=== PATIENT | female | born 1960 | race Caucasian/White ===

== ENCOUNTER 2018-10-12 06:53 | Day surgery (SDC) | payer OTHER ==
[2018-10-12] MEDS ORDERED: Lactated Ringers 1,000 ML IV SCH (07:30)
--- NOTE | 2018-10-12 07:37 | HP ---
DATE OF SURGERY: 10/12/2018 ANTICIPATED PROCEDURE: Colonoscopy. HISTORY OF PRESENT ILLNESS: The patient had rectal bleeding, diarrhea, abdominal pain. She is requiring colonoscopy with stool sample. PAST MEDICAL HISTORY: ALLERGIES: PENICILLIN, SULFA. MEDICATIONS: Glipizide, Januvia, Metoprolol. PAST SURGICAL HISTORY: Total knee. SOCIAL HISTORY: Negative. FAMILY HISTORY: Negative. REVIEW OF SYSTEMS: Diabetes. PHYSICAL EXAMINATION: VITAL SIGNS: Normal. CHEST: Clear. COR: Regular. ABDOMEN: Satisfactory. IMPRESSION: Rectal bleeding, diarrhea. PLAN: Colonoscopy with stool sample.
[2018-10-12] MEDS ORDERED: DIPRIVAN 200 MG/20 ML IV ONE ×2 (09:13→09:29)
[2018-10-12] MEDS ORDERED: GlucaGen 1 MG ONE (09:30)
[2018-10-12 11:04] VITALS: O2SAT 97
[2018-10-12 11:06] VITALS: BP 145/88; PULSE 57
--- NOTE | 2018-10-12 13:21 | OP ---
SURGERY DATE/TIME: 10/12/2018 0914 PREOPERATIVE DIAGNOSIS: Rectal bleeding, diarrhea, abdominal pain. POSTOPERATIVE DIAGNOSIS: One polyp cecal. She has a very redundant colon, fairly large diameter colon but nothing specific. Bowel prep was excellent. There was no stool for specimen. PROCEDURES: 1) Colonoscopy complete to cecum. 2) Hot polypectomy x1 cecal polyp. SURGEON: Max Tatum M.D. BONDING MOLDER: Samson Mcmillan M.D. ANESTHESIA: MAC. COMPLICATIONS: None. CONDITION: Stable. INDICATION: A patient requiring evaluation. DESCRIPTION OF PROCEDURE: Taken to endoscopy. MAC sedation provided. Anal digital examination satisfactory. Scope introduced. Scope advanced to the cecum. Colon was slightly redundant, fairly wide. It did require half dose of Glucagon. On circumferential withdrawal just above the ileocecal valve was a 1 cm polyp taken with hot biopsy forceps to extinction. Ascending, hepatic, transverse, splenic, descending, sigmoid, rectum. Fairly redundant colon. As she has had some symptomatology, I believe it is probably an irritable bowel syndrome symptomatology. There is nothing specific. Rectum, anus satisfactory. The patient tolerated the procedure satisfactorily. Follow up in three years.
== END 2018-10-12 10:55 | disposition home or self-care (01) ==
LOC: SDC 06:53
PROVIDERS: ATTEND Surgery
DX: K62.5 Hemorrhage of anus and rectum (principal); R19.7 Diarrhea, unspecified; R10.9 Unspecified abdominal pain; D12.0 Benign neoplasm of cecum; E11.9 Type 2 diabetes mellitus without complications; Z79.899 Other long term (current) drug therapy
CPT/HCPCS: 82962; J1610; J2704

== ENCOUNTER 2020-11-14 18:22 | Emergency (ER) | payer OTHER ==
--- NOTE | 2020-11-14 18:26 | ERPHSYRPT ---
- History of Present Illness Time Seen by Provider: 11/14/20 18:26 Historian: patient, family Exam Limitations: no limitations Physician History: This is a morbidly obese 60-year-old white female with a history of hypertension, diabetes, irritable bowel syndrome, history of diverticulitis in the past and who has had a total hysterectomy and bladder suspension surgery who presents with sudden onset of periumbilical abdominal pain after bending over and standing up. The pain was severe. It is described as sharp and radiated in the right lower quadrant where it remained throughout the day. She has felt nauseated throughout the day but has had no vomiting. She has no chest pain. She has no shortness of breath. She has no vomiting or diarrhea. Patient was concerned that she may have appendicitis and came into the emergency department for evaluation and management. Timing/Duration: today Activities at Onset: none Quality: sharpness, stabbing Abdominal Pain Onset Location: RLQ, periumbilical Severity of Pain-Max: moderate Severity of Pain-Current: mild (Mild to moderate) Modifying Factors: Improves With: nothing Associated Symptoms: nausea Previous symptoms: no prior history Allergies/Adverse Reactions: Penicillins Allergy (Mild, Verified 10/04/18 11:10) Sulfa (Sulfonamide Antibiotics) [Sulfa(Sulfonamide Antibiotics)] Allergy (Mild, Verified 10/04/18 11:10) Home Medications: Glipizide 5 mg [Glucotrol 5 MG] 5 mg PO DAILY 03/21/15 [History] Escitalopram Oxalate 10 mg [Lexapro 10 MG] 10 mg PO DAILY 10/04/18 [History] Eszopiclone [Lunesta] 2 mg PO HS 10/04/18 [History] Insulin Degludec [Tresiba Flextouch U-100] 100 unit SQ UD 10/04/18 [History] Insulin Glulisine [Apidra] 100 unit SQ UD 10/04/18 [History] Multivitamin [Multivitamins] 1 each PO DAILY 10/04/18 [History] Pregabalin [Lyrica 75 mg Cap] 75 mg PO TID 10/04/18 [History] Cyclobenzaprine HCl 10 mg [Cyclobenzaprine 10 MG] 10 mg PO DAILY 11/14/20 [History] Hx Tetanus, Diphtheria Vaccination/Date Given: No Hx Influenza Vaccination/Date Given: No Hx Pneumococcal Vaccination/Date Given: No Travel Risk - International Travel Have you traveled outside of the country in past 3 weeks: No - Coronavirus Screening Are you exhibiting any of the following symptoms?: No Close contact with a COVID-19 positive Pt in past 14-21 Days: No - Review of Systems Constitutional: No Symptoms Eyes: No Symptoms Ears, Nose, & Throat: No Symptoms Respiratory: No Symptoms Cardiac: No Symptoms Abdominal/Gastrointestinal: Abdominal Pain, Nausea Genitourinary Symptoms: No Symptoms Musculoskeletal: No Symptoms Skin: No Symptoms Neurological: No Symptoms Psychological: No Symptoms Endocrine: No Symptoms Hematologic/Lymphatic: No Symptoms Immunological/Allergic: No Symptoms All Other Systems: Reviewed and Negative - Past Medical History Pertinent Past Medical History: Yes Neurological History: No Pertinent History ENT History: No Pertinent History Cardiac History: Hypertension, Other Respiratory History: No Pertinent History Endocrine Medical History: Diabetes Type II Musculoskeletal History: Arthritis GI Medical History: Irritable Bowel History: No Pertinent History Psycho-Social History: Depression Female Reproductive Disorders: No Pertinent History Other Medical History: kidney stones - Past Surgical History Past Surgical History: Yes Neuro Surgical History: No Pertinent History Cardiac: Cardiac Catheterization Respiratory: No Pertinent History Gastrointestinal: Cholecystectomy Genitourinary: No Pertinent History Musculoskeletal: Joint Replacement, Orthopedic Surgery Female Surgical History: Hysterectomy Other Surgical History: christina knee replacement, - Social History Smoking Status: Never smoker Exposure to second hand smoke: No Drug Use: none Patient Lives Alone: No - Nursing Vital Signs Nursing Vital Signs: Initial Vital Signs Temperature 97.6 F 11/14/20 18:27 Pulse Rate 72 11/14/20 18:27 Respiratory Rate 22 11/14/20 18:27 Blood Pressure 145/98 11/14/20 18:27 O2 Sat by Pulse Oximetry 99 11/14/20 18:27 Pain Scale Pain Intensity 5 - Physical Exam General Appearance: no apparent distress, alert, anxiety, obese Eye Exam: PERRL/EOMI, eyes nml inspection Ears, Nose, Throat Exam: normal ENT inspection, moist mucous membranes Neck Exam: normal inspection, non-tender, supple, full range of motion Respiratory Exam: normal breath sounds, lungs clear, airway intact, No chest tenderness, No respiratory distress Cardiovascular Exam: regular rate/rhythm, normal heart sounds, normal peripheral pulses Gastrointestinal/Abdomen Exam: soft, normal bowel sounds, tenderness, guarding (Right lower quadrant with palpation), No rebound Pelvic Exam: not done Rectal Exam: not done Back Exam: normal inspection, normal range of motion, No CVA tenderness, No vertebral tenderness Extremity Exam: normal inspection, normal range of motion, pelvis stable Neurologic Exam: alert, oriented x 3, cooperative, machine tool builder II-XII nml as tested, normal mood/affect, nml cerebellar function, nml station & gait, sensation nml Skin Exam: normal color, warm, dry Lymphatic Exam: No adenopathy SpO2 Interpretation: normal O2 Delivery: Room Air - Course Nursing assessment & vital signs reviewed: Yes Ordered Tests: Active Orders 24 hr Category Date Time Status IV Insertion STAT Care 11/14/20 19:07 Active ABDOMEN AND PELVIS W/0 CONTRAS [CT] Stat Exams 11/14/20 19:07 Taken AMYLASE Stat Lab 11/14/20 19:10 Completed CBC W DIFF Stat Lab 11/14/20 19:10 Completed CMP Stat Lab 11/14/20 19:10 Completed LIPASE Stat Lab 11/14/20 19:10 Completed Lactic Acid Stat Lab 11/14/20 19:10 Completed UA W/RFX UR CULTURE Stat Lab 11/14/20 19:10 Completed Medication Summary Discontinued Medications Generic Name Dose Route Start Last Admin Trade Name Freq PRN Reason Stop Dose Admin Hydromorphone HCl 1 mg 11/14/20 20:59 Hydromorphone 1 Mg/Ml Injection IV 11/14/20 21:00 STAT ONE Sodium Chloride 1,000 mls @ 999 mls/hr 11/14/20 19:07 11/14/20 19:19 Sodium Chloride 0.9% 1000 Ml IV 11/14/20 20:07 999 mls/hr .Q1H1M STA Administration Sodium Chloride Confirm 11/14/20 19:18 Sodium Chloride 0.9% 1000 Ml Administered 11/14/20 19:19 Dose 1,000 mls @ ud .ROUTE .STK-MED ONE Ondansetron HCl 4 mg 11/14/20 19:07 11/14/20 19:20 Zofran 4 Mg/2 Ml Vial IV 11/14/20 19:08 4 mg STAT ONE Administration Ondansetron HCl Confirm 11/14/20 19:17 Zofran 4 Mg/2 Ml Vial Administered 11/14/20 19:18 Dose 4 mg .ROUTE .STK-MED ONE Lab/Rad Data: Laboratory Result Diagrams 11/14/20 19:10 11/14/20 19:10 Laboratory Results 11/14/20 11/14/20 11/14/20 Range/Units 19:10 19:10 19:10 WBC 12.4 H (4.0-10.5) K/mm3 RBC 4.65 (4.1-5.4) M/mm3 Hgb 12.9 (12.0-16.0) gm/dl Hct 41.2 (35-47) % MCV 88.6 (78-100) fl MCH 27.7 (26-32) pg MCHC 31.3 L (32-36) g/dl RDW 14.9 H (11.5-14.0) % Plt Count 322 (150-450) K/mm3 MPV 11.2 H (7.5-11.0) fl Gran % 67.6 H (36.0-66.0) % Eos # (Auto) 0.43 (0-0.5) Absolute Lymphs (auto) 2.34 (1.0-4.6) Absolute Monos (auto) 1.20 (0.0-1.3) Lymphocytes % 18.9 L (24.0-44.0) % Monocytes % 9.7 (0.0-12.0) % Eosinophils % 3.5 (0.00-5.0) % Basophils % 0.3 (0.0-0.4) % Absolute Granulocytes 8.35 H (1.4-6.9) Basophils # 0.04 (0-0.4) Sodium 142 (137-145) mmol/L Potassium 4.1 (3.5-5.1) mmol/L Chloride 105 (98-107) mmol/L Carbon Dioxide 25 (22-30) mmol/L Anion Gap 16.5 H (5-15) MEQ/L BUN 25 H (7-17) mg/dL Creatinine 1.04 (0.52-1.04) mg/dL Estimated GFR 57.1 ML/MIN Glucose 116 H (74-106) mg/dL Lactic Acid 1.0 (0.4-2.0) Calcium 9.3 (8.4-10.2) mg/dL Total Bilirubin 0.20 (0.2-1.3) mg/dL AST 28 (14-36) U/L ALT 27 (0-35) U/L Alkaline Phosphatase 98 (38-126) U/L Serum Total Protein 7.2 (6.3-8.2) g/dL Albumin 4.2 (3.5-5.0) g/dL Amylase 65 (30-110) U/L Lipase 121 (23-300) U/L Urine Color (YELLOW) Urine Appearance (CLEAR) Urine pH (5-6) Ur Specific [place] (1.005-1.025) Urine Protein (Negative) Urine Ketones (NEGATIVE) Urine Blood (0-5) Frederic/ul Urine Nitrite (NEGATIVE) Urine Bilirubin (NEGATIVE) Urine Urobilinogen (0-1) mg/dL Ur Leukocyte Esterase (NEGATIVE) Urine WBC (Auto) (0-5) /HPF Urine RBC (Auto) (0-2) /HPF U Epithel Cells (Auto) (FEW) /HPF Urine Bacteria (Auto) (NEGATIVE) /HPF Urine Mucus (Auto) (NEGATIVE) /HPF Urine Culture Reflexed (NO) Urine Glucose (NEGATIVE) mg/dL 11/14/20 Range/Units 19:10 WBC (4.0-10.5) K/mm3 RBC (4.1-5.4) M/mm3 Hgb (12.0-16.0) gm/dl Hct (35-47) % MCV (78-100) fl MCH (26-32) pg MCHC (32-36) g/dl RDW (11.5-14.0) % Plt Count (150-450) K/mm3 MPV (7.5-11.0) fl Gran % (36.0-66.0) % Eos # (Auto) (0-0.5) Absolute Lymphs (auto) (1.0-4.6) Absolute Monos (auto) (0.0-1.3) Lymphocytes % (24.0-44.0) % Monocytes % (0.0-12.0) % Eosinophils % (0.00-5.0) % Basophils % (0.0-0.4) % Absolute Granulocytes (1.4-6.9) Basophils # (0-0.4) Sodium (137-145) mmol/L Potassium (3.5-5.1) mmol/L Chloride (98-107) mmol/L Carbon Dioxide (22-30) mmol/L Anion Gap (5-15) MEQ/L BUN (7-17) mg/dL Creatinine (0.52-1.04) mg/dL Estimated GFR ML/MIN Glucose (74-106) mg/dL Lactic Acid (0.4-2.0) Calcium (8.4-10.2) mg/dL Total Bilirubin (0.2-1.3) mg/dL AST (14-36) U/L ALT (0-35) U/L Alkaline Phosphatase (38-126) U/L Serum Total Protein (6.3-8.2) g/dL Albumin (3.5-5.0) g/dL Amylase (30-110) U/L Lipase (23-300) U/L Urine Color YELLOW (YELLOW) Urine Appearance CLEAR (CLEAR) Urine pH 5.0 (5-6) Ur Specific [place] 1.033 (1.005-1.025) Urine Protein NEGATIVE (Negative) Urine Ketones NEGATIVE (NEGATIVE) Urine Blood NEGATIVE (0-5) Frederic/ul Urine Nitrite NEGATIVE (NEGATIVE) Urine Bilirubin NEGATIVE (NEGATIVE) Urine Urobilinogen NEGATIVE (0-1) mg/dL Ur Leukocyte Esterase NEGATIVE (NEGATIVE) Urine WBC (Auto) 0-2 (0-5) /HPF Urine RBC (Auto) 0-2 (0-2) /HPF U Epithel Cells (Auto) RARE (FEW) /HPF Urine Bacteria (Auto) NONE (NEGATIVE) /HPF Urine Mucus (Auto) SLIGHT (NEGATIVE) /HPF Urine Culture Reflexed NO (NO) Urine Glucose >=500 (NEGATIVE) mg/dL - Progress Progress: improved, pain not gone completely, re-examined Progress Note: 11/14/20 21:17 CAT scan of the abdomen pelvis without contrast shows no evidence of any acute intra-abdominal or pelvic pathology. There is no evidence of appendicitis. No abdominal aortic aneurysm present. There is evidence of bilateral spondylolysis, spondylolisthesis, and degenerative spondylosis. Counseled pt/family regarding: lab results, diagnosis, need for follow-up, rad results - Departure Departure Disposition: Home Clinical Impression: Abdominal pain Condition: Stable Critical Care Time: No Referrals: DELORES TRONCOSO [Primary Care Provider] - Additional Instructions: Plenty of fluids. Take medication as prescribed. Follow-up with your primary care physician on 11/17/2020 for further evaluation and management. Prescriptions: Hydrocodone/APAP 5/325 [[place] 5/325 mg] 1 each PO Q8H PRN PRN #6 tablet MDD 3 PRN Reason: Pain
[2020-11-14 18:36] VITALS: BP 145/98; PULSE 72; O2SAT 99
[2020-11-14] MEDS ORDERED: Zofran 4 MG/2 ML VIAL IV ONE (19:07)
[2020-11-14] MEDS ORDERED: Sodium Chloride 0.9% 1000 ML 1,000 ML IV STA (19:07)
[2020-11-14 19:14] LABS: Absolute Neutrophil Ct (ANC) 8.35 (1.4-6.9); BASOPHIL % 0.3 % (0.0-0.4); Basophil (Absolute #) 0.04 (0-0.4); Eosinophil % 3.5 % (0.00-5.0); Eosinophil (Absolute #) 0.43 (0-0.5); Hematocrit 41.2 % (35-47); Hemoglobin 12.9 gm/dl (12.0-16.0); Lymphocyte (Absolute #) 2.34 (1.0-4.6); Lymphocytes % 18.9 % (24.0-44.0); Mean Cell Volume 88.6 fl (78-100); Mean Corpuscular Hemoglobin 27.7 pg (26-32); Mean Corpuscular Hgb Concent. 31.3 g/dl (32-36); Mean Platelet Volume 11.2 fl (7.5-11.0); Monocytes % 9.7 % (0.0-12.0); Neutrophil % 67.6 % (36.0-66.0); Platelet Count 322 K/mm3 (150-450); Red Blood Count 4.65 M/mm3 (4.1-5.4); Red Cell Distribution Width 14.9 % (11.5-14.0); White Blood Count 12.4 K/mm3 (4.0-10.5)
[2020-11-14] MEDS ORDERED: Zofran 4 MG/2 ML VIAL ONE (19:17)
[2020-11-14] MEDS ORDERED: Sodium Chloride 0.9% 1000 ML 1,000 ML ONE (19:18)
[2020-11-14 19:20] LABS: Appearance CLEAR (CLEAR); Bilirubin NEGATIVE (NEGATIVE); Blood NEGATIVE Ery/ul (0-5); Epithelial Cells RARE /HPF (FEW); Glucose >=500 mg/dL (NEGATIVE); Ketones NEGATIVE (NEGATIVE); Leukocyte Esterase NEGATIVE (NEGATIVE); Mucus SLIGHT /HPF (NEGATIVE); Nitrite NEGATIVE (NEGATIVE); Protein,Urine Dip NEGATIVE (Negative); RBC 0-2 /HPF (0-2); Specific Gravity 1.033 (1.005-1.025); Urobilinogen NEGATIVE mg/dL (0-1); WBC 0-2 /HPF (0-5)
[2020-11-14 19:22] LABS: ALBUMIN 4.2 g/dL (3.5-5.0); ANION GAP 16.5 MEQ/L (5-15); BILIRUBIN,TOTAL 0.2 mg/dL (0.2-1.3); Calcium 9.3 mg/dL (8.4-10.2); Creatinine 1 1.04 mg/dL (0.52-1.04); EST GLOMERULAR FILTRATION RATE 57.1 ML/MIN; Potassium 4.1 mmol/L (3.5-5.1); Total Protein 7.2 g/dL (6.3-8.2)
[2020-11-14] MEDS ORDERED: Hydromorphone 1 mg/ml Injection IV ONE (20:59)
[2020-11-14] MEDS ORDERED: Hydromorphone 1 mg/ml Injection ONE (21:12)
--- NOTE | 2020-11-14 21:51 | XRAY ---
Indication: Right lower quadrant pain and nausea. Multiple contiguous axial images obtained through abdomen and pelvis without contrast. Comparison: February 15, 2014. Lung bases demonstrates minimal bibasilar subsegmental atelectasis/scarring. No infiltrate or effusion. Heart not enlarged. Stomach is mildly distended with food/fluid. Noncontrasted stomach and bowel loops appear nonobstructed. Normal appendix. There is now mild diffuse fecal debris throughout. Again hysterectomy and cholecystectomy. No free fluid/air. Remaining liver, pancreas, spleen, adrenal glands, kidneys, ureters, and bladder are unremarkable for noncontrast exam. Minimal aortoiliac calcifications without AAA. Osseous structures intact again with moderate L4-S1 degenerative spondylosis and L4 spondylolysis with grade 2 spondylolisthesis. Impression: 1. New mild diffuse fecal stasis. 2. Stable lumbar degenerative spondylosis and L4 spondylolysis with grade [address] abdomen/pelvis without contrast exam is negative. Comment: Preliminary interpretation was made by [facility]. No critical discrepancy.
== END 2020-11-14 21:41 | disposition home or self-care (01) ==
LOC: ED 18:22
DX: R10.9 Unspecified abdominal pain (principal); E11.9 Type 2 diabetes mellitus without complications; I10 Essential (primary) hypertension; Z79.899 Other long term (current) drug therapy; K58.9 Irritable bowel syndrome, unspecified
CPT/HCPCS: 36000; 36415; 74176; 80053; 81001; 82150; 83605; 83690; 85025; 96374; 96375; 99284; J1170; J2405

== ENCOUNTER 2022-01-16 08:13 | Emergency (ER) | payer OTHER ==
--- NOTE | 2022-01-16 08:25 | ERPHSYRPT ---
- History of Present Illness Time Seen by Provider: 01/16/22 08:24 Source: patient Exam Limitations: no limitations Physician History: This is a 61-year-old white female who presents with hematuria and dysuria that began last night. She also has associated mild suprapubic cramping with urination as well as mild bilateral flank pain. Patient is not on any anticoagulation therapy. She does take aspirin daily. Patient has a history of insulin-dependent diabetes, arthritis and irritable bowel syndrome. Patient states that she does get yeast infections rather easily when taking antibiotics and therefore will need to be placed on an antifungal medication. Timing/Duration: yesterday Quality: aching, burning Onset Location: suprapubic, generalized flank Pain Radiation: generalized flank Severity of Pain-Max: mild Severity of Pain-Current: mild Sexual intercourse history: non-contributory Modifying Factors: Improves With: urinating Associated Symptoms: abdominal pain (Mild suprapubic), urinary frequency, No fever Allergies/Adverse Reactions: Penicillins Allergy (Mild, Verified 01/16/22 08:23) Sulfa (Sulfonamide Antibiotics) [Sulfa(Sulfonamide Antibiotics)] Allergy (Mild, Verified 01/16/22 08:23) Home Medications: Glipizide 5 mg [Glucotrol 5 MG] 5 mg PO DAILY 03/21/15 [History] Escitalopram Oxalate [Lexapro] 10 mg PO DAILY 10/04/18 [History] Eszopiclone [Lunesta] 2 mg PO HS 10/04/18 [History] Insulin Degludec [Tresiba Flextouch U-100] 100 unit SQ UD 10/04/18 [History] Insulin Glulisine [Apidra] 100 unit SQ UD 10/04/18 [History] Multivitamin [Multivitamins] 1 each PO DAILY 10/04/18 [History] Pregabalin [Lyrica 75 mg Cap] 75 mg PO TID 10/04/18 [History] Cyclobenzaprine HCl 10 mg [Cyclobenzaprine 10 MG] 10 mg PO DAILY 11/14/20 [History] Hx Tetanus, Diphtheria Vaccination/Date Given: No Hx Influenza Vaccination/Date Given: No Hx Pneumococcal Vaccination/Date Given: No Travel Risk - International Travel Have you traveled outside of the country in past 3 weeks: No - Coronavirus Screening Are you exhibiting any of the following symptoms?: No Close contact with a COVID-19 positive Pt in past 14-21 Days: No - Vaccine Status Have you recieved a Covid-19 vaccination: Yes Load Checker: Pfizer - Vaccination Dates Date of 2cond Vaccination (if applicable): 09/2020 - Review of Systems Constitutional: No Symptoms Eyes: No Symptoms Ears, Nose, & Throat: No Symptoms Respiratory: No Symptoms Cardiac: No Symptoms Abdominal/Gastrointestinal: Abdominal Pain (Mild suprapubic) Genitourinary Symptoms: Dysuria, Frequency, Hematuria Musculoskeletal: No Symptoms Skin: No Symptoms Neurological: No Symptoms Psychological: No Symptoms Endocrine: No Symptoms Hematologic/Lymphatic: No Symptoms Immunological/Allergic: No Symptoms All Other Systems: Reviewed and Negative - Past Medical History Pertinent Past Medical History: Yes Neurological History: No Pertinent History ENT History: No Pertinent History Cardiac History: Hypertension, Other Respiratory History: No Pertinent History Endocrine Medical History: Diabetes Type II Musculoskeletal History: Arthritis GI Medical History: Irritable Bowel History: No Pertinent History Psycho-Social History: Depression Female Reproductive Disorders: No Pertinent History Other Medical History: kidney stones - Past Surgical History Past Surgical History: Yes Neuro Surgical History: No Pertinent History Cardiac: Cardiac Catheterization Respiratory: No Pertinent History Gastrointestinal: Cholecystectomy Genitourinary: No Pertinent History Musculoskeletal: Joint Replacement, Orthopedic Surgery Female Surgical History: Hysterectomy Other Surgical History: christina knee replacement, - Social History Smoking Status: Never smoker Exposure to second hand smoke: No Drug Use: none Patient Lives Alone: No - Nursing Vital Signs Nursing Vital Signs: Initial Vital Signs Temperature 97.4 F 01/16/22 08:23 Pulse Rate 80 01/16/22 08:23 Respiratory Rate 17 01/16/22 08:23 Blood Pressure 114/80 01/16/22 08:23 O2 Sat by Pulse Oximetry 95 01/16/22 08:23 Pain Scale Pain Intensity 3 - Physical Exam General Appearance: no apparent distress, alert Eye Exam: PERRL/EOMI, eyes nml inspection Ears, Nose, Throat Exam: normal ENT inspection, moist mucous membranes Neck Exam: normal inspection, non-tender, supple, full range of motion Respiratory Exam: airway intact, No chest tenderness, No respiratory distress Gastrointestinal/Abdomen Exam: tenderness (Mild suprapubic to palpation), No distention, No guarding, No pulsatile mass, No rebound Pelvic Exam: not done Rectal Exam: not done Back Exam: normal inspection, normal range of motion, CVA tenderness, No vertebral tenderness Extremity Exam: normal inspection, normal range of motion, pelvis stable Neurologic Exam: alert, oriented x 3, cooperative, smoke jumper II-XII nml as tested, normal mood/affect, nml cerebellar function, nml station & gait, sensation nml Skin Exam: normal color, warm, dry Lymphatic Exam: No adenopathy SpO2 Interpretation: normal O2 Delivery: Room Air - Course Nursing assessment & vital signs reviewed: Yes Ordered Tests: Active Orders 24 hr Category Date Time Status UA W/RFX CULTURE Stat Lab 01/16/22 08:36 Results Lab/Rad Data: Laboratory Results 01/16/22 Range/Units 08:36 Urinalys Dipstick Clnc MAIN LAB Urine Color YELLOW (YELLOW) Urine Appearance CLOUDY (CLEAR) Urine pH 5.5 (5-6) Ur Specific [place] 1.020 (1.005-1.025) POC Urine Protein Conf 100 (Negative) Urine Ketones NEGATIVE (NEGATIVE) Urine Nitrite POSITIVE (NEGATIVE) Urine Bilirubin NEGATIVE (NEGATIVE) Urine Urobilinogen 0.2 (0-1) mg/dL Urine Leukocytes MODERATE (NEGATIVE) Urine WBC (Auto) >100 (0-5) /HPF Urine RBC (Auto) >101 (0-2) /HPF U Epithel Cells (Auto) RARE (FEW) /HPF Urine Bacteria (Auto) FEW (NEGATIVE) /HPF Urine RBC LARGE (0-5) Frederic/ul Unidentified Crystals 2-5 (NEGATIVE) /HPF Urine Yeast (Budding) Rare (NEGATIVE) /HPF Ur Culture Indicated? YES Urine Glucose 500 (NEGATIVE) mg/dL - Departure Departure Disposition: Home Clinical Impression: UTI (urinary tract infection), Dysuria, Hematuria Condition: Stable Critical Care Time: No Referrals: DELORES TRONCOSO [Primary Care Provider] - Follow up/PCP as directed Additional Instructions: Drink plenty of fluids. Take your antibiotics as prescribed. Take your second Diflucan on 01/19/2022. Follow-up with your primary care provider or urologist for persistent symptoms. Prescriptions: Ciprofloxacin [Cipro 500 MG] 500 mg PO BID #14 tablet Fluconazole 100 mg [Diflucan 100 MG] 100 mg PO DAILY #1 tablet Phenazopyridine HCl 200 mg [Pyridium 200 mg] 200 mg PO TID #6 tablet
[2022-01-16 08:48] LABS: Appearance CLOUDY (CLEAR); Bilirubin NEGATIVE (NEGATIVE); Glucose 500 mg/dL (NEGATIVE); Ketones NEGATIVE (NEGATIVE)
[2022-01-16 08:49] LABS: Dipstick done @ ? MAIN LAB; Nitrite POSITIVE (NEGATIVE); Ph 5.5 (5-6); Protein,Urine Dip 100 (Negative); RBC LARGE Ery/ul (0-5); Urobilinogen 0.2 mg/dL (0-1)
[2022-01-16 08:59] LABS: Epithelial Cells RARE /HPF (FEW); WBC >100 /HPF (0-5)
[2022-01-16 09:01] LABS: RBC >101 /HPF (0-2)
[2022-01-16] MEDS ORDERED: Diflucan 100 MG PO ONE (09:01)
[2022-01-16] MEDS ORDERED: Levofloxacin 500 MG Tablet PO ONE (09:01)
[2022-01-16 09:02] LABS: Bacteria FEW /HPF (NEGATIVE); Budding Yeast Rare /HPF (NEGATIVE); Urine Cultured Indicated? YES
[2022-01-16] MEDS ORDERED: PYRIDIUM 200 MG PO ONE (09:02)
[2022-01-16] MEDS ORDERED: PYRIDIUM 200 MG ONE (09:15)
[2022-01-16] MEDS ORDERED: Levofloxacin 500 MG Tablet ONE (09:15)
[2022-01-16 09:30] VITALS: BP 117/79; PULSE 76; O2SAT 99
== END 2022-01-16 09:40 | disposition home or self-care (01) ==
LOC: ED 08:13
DX: N39.0 Urinary tract infection, site not specified (principal); R31.9 Hematuria, unspecified; R30.9 Painful micturition, unspecified; R10.9 Unspecified abdominal pain; E11.9 Type 2 diabetes mellitus without complications; I10 Essential (primary) hypertension; Z79.4 Long term (current) use of insulin; Z79.84 Long term (current) use of oral hypoglycemic drugs; Z79.899 Other long term (current) drug therapy
CPT/HCPCS: 81015; 87077; 87086; 87186; 99283; A9270-GY

== ENCOUNTER 2024-11-14 06:33 | Emergency (ER) | payer MEDICARE, OTHER ==
[2024-11-14 06:58] VITALS: TEMP 97.8
--- NOTE | 2024-11-14 07:07 | ERPHSYRPT ---
- History of Present Illness Time Seen by Provider: 11/14/24 06:50 Historian: patient, family Exam Limitations: no limitations Patient Subjective Stated Complaint: PATIENT STATED, "YESTERDAY I STARTED HAVING BACK PAIN AND I THOUGHT I JUST HURT MY BACK. THIS MORNING I WOKE UP AND I WAS HAVING CHEST PAIN. THE PAIN STARTED IN MY RIGHT SHOULDER AND NOW IT IS JUST IN THE MIDDLE OF MY CHEST." Triage Nursing Assessment: PATIENT PRESENTS TO ER WITH COMPLAINTS OF CHEST PAIN. PATIENT ARRIVED BY PERSONAL VEHICLE. PATIENT AMBULATED WITHOUT DIFFICULTY. PATIENT IS A/O X3. PATIENT COMPLAINED OF CHEST PAIN THAT STARTED IN HER RIGHT SHOULDER AND IS NOW IN THE MIDDLE OF HER CHEST. PATIENT STATED HER PAIN IS A 7/10 ON THE PAIN SCALE AT THIS TIME. PATIENT STATED SHE HAS NITRO, BUT HAS NOT TAKEN ANY AT THIS TIME. PATIENT IS IN NORMAL SINUS RHYTHM. SKIN IS WARM, DRY, AND PINK. RESPIRATIONS ARE EASY AND NONLABORED. PATIENT STATED SHE HAS PAIN UPON INSPIRATION (PATIENT IS 2 MONTHS POST CABG. SURGICAL INCISION ON MID STERNUM APPEARS TO BE HEALING APPROPRIATELY). Physician History: This is a 64-year-old white female patient of Dr. Troncoso who presents by private vehicle accompanied by her spouse with the complaint of chest pain that is central substernal and radiates to the right shoulder and now radiating over to the left side. It is an achiness and a pressure by description. The pain worsens with deep inspiration. Patient denies fever and denies cough. Patient's symptoms began last evening and again this morning. Patient took all of her medications this morning per her report which does include a baby aspirin and Plavix. She did not take any nitroglycerin. In August 2024 patient underwent a CABG. Her audit partner is Dr. Rucker and her cardiothoracic surgeon is Dr. Yanez. The procedure was performed at [facility] in [facility]. Patient has a history of insulin-dependent diabetes, hyperlipidemia, coronary artery disease (CABG) gastroesophageal reflux disease and the patient is on Plavix. Timing/Duration: yesterday Activities at Onset: none Quality: pressure, sharpness Chest Pain Radiation: arm (Right shoulder), back Severity of Pain-Max: moderate Severity of Pain-Current: moderate Modifying Factors: Improves With: nothing Associated Symptoms: hurts to breathe Prior Chest Pain/Cardiac Workup: cardiac cath, echocardiography, heart attack Nitro Today/Relief: no nitro taken today Aspirin Treatment Today: 81 mg x 1, provided at home Allergies/Adverse Reactions: Penicillins Allergy (Mild, Verified 11/14/24 06:58) Sulfa (Sulfonamide Antibiotics) [Sulfa(Sulfonamide Antibiotics)] Allergy (Mild, Verified 11/14/24 06:58) Home Medications: Ascorbic Acid [Vitamin C] 1,000 mg PO DAILY 08/14/24 [History] Biotin [Biotin-D] 1 tab PO DAILY 08/14/24 [History] Gabapentin [Neurontin ] 300 mg PO TID 08/14/24 [History] Insulin Degludec [Tresiba Flextouch U-100] 1 unit SQ CLARIFY 08/14/24 [History] Insulin Glulisine [Apidra Solostar] 1 unit SQ CLARIFY 08/14/24 [History] Semaglutide [Rybelsus] 1 tab PO DAILY 08/14/24 [History] Aspirin 81 gm Chew [Baby Aspirin 81 mg Chew] 81 mg PO QAM 11/14/24 [History] Atorvastatin Calcium 40 mg PO HS 11/14/24 [History] Clopidogrel Bisulfate [Clopidogrel] 75 mg PO QAM 11/14/24 [History] Cyanocobalamin (Vitamin B-12) [Vitamin B-12] 1,000 mcg PO QAM 11/14/24 [History] Empagliflozin [Jardiance] 10 mg PO QAM 11/14/24 [History] Eszopiclone 3 mg PO HS 11/14/24 [History] Ezetimibe 10 mg [Zetia 10 MG] 10 mg PO QAM 11/14/24 [History] Famotidine [Pepcid] 20 mg PO BID 11/14/24 [History] Nitroglycerin 0.4 mg Tablet [Nitrostat 0.4 MG Tablet] 0.4 mg SL Q5MIN PRN MR X 3 PRN 11/14/24 [History] Hx Tetanus, Diphtheria Vaccination/Date Given: Yes Hx Influenza Vaccination/Date Given: No Hx Pneumococcal Vaccination/Date Given: No Immunizations Up to Date: No Travel Risk - International Travel Have you traveled outside of the country in past 3 weeks: No - Emerging Infectious Disease Are you exhibiting symptoms associated with any current EIDs: No - Review of Systems Constitutional: No Symptoms Eyes: No Symptoms Ears, Nose, & Throat: No Symptoms Respiratory: No Symptoms Cardiac: Chest Pain Abdominal/Gastrointestinal: No Symptoms Genitourinary Symptoms: No Symptoms Musculoskeletal: No Symptoms Skin: No Symptoms Neurological: No Symptoms Psychological: No Symptoms Endocrine: No Symptoms Hematologic/Lymphatic: No Symptoms Immunological/Allergic: No Symptoms All Other Systems: Reviewed and Negative - Past Medical History Pertinent Past Medical History: Yes Neurological History: No Pertinent History ENT History: No Pertinent History Cardiac History: Hypertension, Other Respiratory History: No Pertinent History Endocrine Medical History: Diabetes Type II Musculoskeletal History: Arthritis GI Medical History: Irritable Bowel History: No Pertinent History Psycho-Social History: No Pertinent History Female Reproductive Disorders: No Pertinent History Other Medical History: kidney stones - Past Surgical History Past Surgical History: Yes Neuro Surgical History: No Pertinent History Cardiac: CABG, Cardiac Catheterization Respiratory: No Pertinent History Gastrointestinal: Cholecystectomy Genitourinary: No Pertinent History Musculoskeletal: Joint Replacement, Orthopedic Surgery Female Surgical History: Hysterectomy Other Surgical History: christina knee replacement, - Social History Smoking Status: Never smoker Exposure to second hand smoke: No Drug Use: none - Social Determinants of Health Will the patient participate in the screening: Yes Do you worry about a steady place to live?: Yes Do you have any problems with any of the following?: No known problems In the past 12 months,have you had to go without utilities?: No Transportation Issues: No Has anyone in your support network made you feel unsafe?: No Have you or anyone in your house had to go w/o enough food: No - Nursing Vital Signs Nursing Vital Signs: Initial Vital Signs Temperature 97.8 F 11/14/24 06:34 Pulse Rate 85 11/14/24 06:34 Respiratory Rate 18 11/14/24 06:34 Blood Pressure 141/81 11/14/24 06:34 O2 Sat by Pulse Oximetry 99 11/14/24 06:34 Pain Scale Pain Intensity 0 - Physical Exam General Appearance: mild distress, alert, anxiety Eye Exam: PERRL/EOMI, eyes nml inspection Ears, Nose, Throat Exam: normal ENT inspection, moist mucous membranes Neck Exam: normal inspection, non-tender, supple, full range of motion Respiratory Exam: normal breath sounds, chest tenderness, lungs clear, airway intact, No respiratory distress Cardiovascular Exam: regular rate/rhythm, normal heart sounds, normal peripheral pulses Gastrointestinal/Abdomen Exam: soft, normal bowel sounds, No tenderness Pelvic Exam: not done Rectal Exam: not done Back Exam: normal inspection, normal range of motion, No CVA tenderness, No vertebral tenderness Extremity Exam: normal inspection, normal range of motion, pelvis stable Neurologic Exam: alert, oriented x 3, cooperative, [employer] department supervisor II-XII nml as tested, nml cerebellar function, nml station & gait, sensation nml Skin Exam: normal color, warm, dry Lymphatic Exam: No adenopathy SpO2 Interpretation: normal SpO2: 97 O2 Delivery: Room Air - Course Nursing assessment & vital signs reviewed: Yes EKG Interpreted by Me: RATE (78), Sinus Rhythm, NORMAL AXIS, NORMAL INTERVALS, NORMAL QRS, Other (No acute ischemia on today's twelve-lead EKG. QTc is 446) Ordered Tests: Active Orders 24 hr Category Date Time Status Management Aide STAT Care 11/14/24 07:08 Active EKG-ER Only STAT Care 11/14/24 07:07 Active EKG-ER Only STAT Care 11/14/24 09:03 Active IV Insertion STAT Care 11/14/24 07:07 Active Pulse Oximetry (ED) STAT Care 11/14/24 07:07 Active ANKLE (3 VIEWS) Stat Exams 11/14/24 08:14 Completed CHEST WITHOUT CONTRAST [CT] Stat Exams 11/14/24 07:09 Completed FOOT (MINIMUM 3 VIEWS) Stat Exams 11/14/24 08:14 Completed CBC W DIFF Stat Lab 11/14/24 06:45 Completed CMP Stat Lab 11/14/24 06:45 Completed MAGNESIUM Stat Lab 11/14/24 06:45 Completed NT PRO BNPII Stat Lab 11/14/24 06:45 Completed PROTIME WITH INR Stat Lab 11/14/24 06:45 Completed TROPONIN Q4H Lab 11/14/24 06:45 Completed TROPONIN Q4H Lab 11/14/24 08:59 Completed TROPONIN Q4H Lab 11/14/24 15:15 Ordered Medication Summary Discontinued Medications Generic Name Dose Route Start Last Admin Trade Name Freq PRN Reason Stop Dose Admin Morphine Sulfate 2 mg 11/14/24 07:32 11/14/24 07:45 Morphine Sulfate 2 Mg/Ml Inj IV 11/14/24 07:33 2 mg STAT ONE Administration Morphine Sulfate Confirm 11/14/24 07:41 Morphine Sulfate 2 Mg/Ml Inj Administered 11/14/24 07:42 Dose 2 mg .ROUTE .STK-MED ONE Ondansetron HCl 4 mg 11/14/24 07:32 11/14/24 07:45 Ondansetron Hcl 4 Mg/2 Ml Vial IV 11/14/24 07:33 4 mg STAT ONE Administration Ondansetron HCl Confirm 11/14/24 07:41 Ondansetron Hcl 4 Mg/2 Ml Vial Administered 11/14/24 07:42 Dose 4 mg .ROUTE .STK-MED ONE Lab/Rad Data: Laboratory Result Diagrams 11/14/24 06:45 11/14/24 06:45 Laboratory Results 11/14/24 11/14/24 11/14/24 Range/Units 08:59 06:45 06:45 WBC (3.98-10.04) x10^3/uL RBC (3.93-5.22) x10^6/uL Hgb (11.2-15.7) g/dL Hct (34.1-44.9) % MCV (79.4-94.8) fL MCH (25.6-32.2) pg MCHC (32.2-35.5) g/dL RDW (11.7-14.4) % Plt Count (182-369) x10^3/uL MPV (9.4-12.3) fL Gran % (34.0-71.1) % Immature Gran % (Auto) (0.001-0.429) % Nucleat RBC Rel Count (0.00-0.2) % Eos # (Auto) (0.04-0.36) x10^3/uL Immature Gran # (Auto) (0.001-0.031) x10^3u/L Absolute Lymphs (auto) (1.18-3.74) x10^3/uL Absolute Monos (auto) (0.24-0.86) x10^3/uL Absolute Nucleated RBC (0.00-0.012) x10^3u/L Lymphocytes % (19.3-51.7) % Monocytes % (4.7-12.5) % Eosinophils % (0.7-5.8) % Basophils % (0.1-1.2) % Absolute Granulocytes (1.56-6.13) x10^3/uL Basophils # (0.01-0.08) x10^3/uL PT 9.8 (9.4-12.5) SECONDS INR 0.89 (0.8-3.0) Sodium (135-145) mmol/L Potassium (3.5-5.1) mmol/L Chloride (98-107) mmol/L Carbon Dioxide (22-30) mmol/L Anion Gap (5-15) MEQ/L BUN (7-17) mg/dL Creatinine (0.52-1.04) mg/dL Estimated GFR ML/MIN Glucose (74-106) mg/dL Calcium (8.4-10.2) mg/dL Magnesium (1.6-2.3) mg/dL Total Bilirubin (0.2-1.3) mg/dL AST (14-36) U/L ALT (0-35) U/L Alkaline Phosphatase (38-126) U/L Troponin I < 0.012 < 0.012 (0.000-0.033) ng/mL NT-Pro-B Natriuret Pep (<300) pg/mL Serum Total Protein (6.3-8.2) g/dL Albumin (3.5-5.0) g/dL 11/14/24 11/14/24 Range/Units 06:45 06:45 WBC 14.6 H (3.98-10.04) x10^3/uL RBC 4.90 (3.93-5.22) x10^6/uL Hgb 13.4 (11.2-15.7) g/dL Hct 42.6 (34.1-44.9) % MCV 86.9 (79.4-94.8) fL MCH 27.3 (25.6-32.2) pg MCHC 31.5 L (32.2-35.5) g/dL RDW 14.1 (11.7-14.4) % Plt Count 319 (182-369) x10^3/uL MPV 10.7 (9.4-12.3) fL Gran % 73.5 H (34.0-71.1) % Immature Gran % (Auto) 0.4 (0.001-0.429) % Nucleat RBC Rel Count 0.0 (0.00-0.2) % Eos # (Auto) 0.56 H (0.04-0.36) x10^3/uL Immature Gran # (Auto) 0.06 H (0.001-0.031) x10^3u/L Absolute Lymphs (auto) 2.01 (1.18-3.74) x10^3/uL Absolute Monos (auto) 1.16 H (0.24-0.86) x10^3/uL Absolute Nucleated RBC 0.00 (0.00-0.012) x10^3u/L Lymphocytes % 13.8 L (19.3-51.7) % Monocytes % 8.0 (4.7-12.5) % Eosinophils % 3.8 (0.7-5.8) % Basophils % 0.5 (0.1-1.2) % Absolute Granulocytes 10.69 H (1.56-6.13) x10^3/uL Basophils # 0.08 (0.01-0.08) x10^3/uL PT (9.4-12.5) SECONDS INR (0.8-3.0) Sodium 141 (135-145) mmol/L Potassium 4.1 (3.5-5.1) mmol/L Chloride 106 (98-107) mmol/L Carbon Dioxide 27 (22-30) mmol/L Anion Gap 12.3 (5-15) MEQ/L BUN 14 (7-17) mg/dL Creatinine 0.85 (0.52-1.04) mg/dL Estimated GFR 75.5 ML/MIN Glucose 97 (74-106) mg/dL Calcium 9.8 (8.4-10.2) mg/dL Magnesium 2.0 (1.6-2.3) mg/dL Total Bilirubin 0.60 (0.2-1.3) mg/dL AST 30 (14-36) U/L ALT 28 (0-35) U/L Alkaline Phosphatase 99 (38-126) U/L Troponin I (0.000-0.033) ng/mL NT-Pro-B Natriuret Pep 309 (<300) pg/mL Serum Total Protein 7.3 (6.3-8.2) g/dL Albumin 4.2 (3.5-5.0) g/dL - Progress Progress: improved, re-examined Air Movement: good Progress Note: 11/14/24 07:40 My medical decision making and the assignment of at least moderate complexity was based on review of the patient's past medical history, review the patient's medication list, review the patient's drug allergy list, history present illness and physical findings on examination. The workup in this patient includes placement of a intravenous line, twelve-lead EKG, CBC, CMP, BNP, troponin level, magnesium level and CT scan of the chest without contrast. Differential diagnosis includes but is not limited to muscle skeletal pain, pneumonia, myocardial infarction, CHF, arrhythmia, electrolyte abnormalities 11/14/24 08:[address] scan of the chest without contrast was interpreted by the radiologist and I reviewed the impression. The impression states small hiatal hernia with distal esophageal circumferential wall thickening. Questionable reflux esophagitis. Otherwise normal chest CT scan of the chest without contrast 11/14/24 09:00 I interpreted the preliminary report of the following plain x-rays: Right foot x-ray shows no acute fracture or dislocation. Right ankle x-ray shows chronic changes without evidence of acute fracture or dislocation. Final reports of the following plain x-rays were interpreted by the radiologist: Right foot x-ray shows degenerative changes without new or acute abnormalities Right ankle x-ray shows degenerative changes without new or acute abnormalities 11/14/24 09:07 I spoke with , the patient's audit partner. I reviewed the patient presenting complaint. He knows this patient well. I also reviewed the results of the workup. He states that the patient is safe to go home if the repeat twelve-lead EKG is nonacute and the repeat troponin is normal. I interpreted the repeat twelve-lead EKG that was performed on 11/14/2024 at 0903. The heart rate is 82 bpm. Is normal sinus rhythm. There is normal axis deviation, normal QRS and normal intervals. The QTc is 438. There are no acute ischemic changes. 11/14/24 09:33 I interpreted the repeat troponin level. It is normal. The patient may be discharged home. Blood Culture(s) Obtained: No Antibiotics given: No Counseled pt/family regarding: lab results, diagnosis, need for follow-up, rad results Medical Desision Making - Independent Historian Additional History obtained from: Family - Diagnostic Testing Diagnostic test were ordered, analyzed, and reviewed by me: Yes Radiological Interpretation: Interpreted by me, Reviewed by me, Teleradiologist Report - Risk of complications Low Risk: Low risk of morbidity from additional dx testing or treatment - Departure Departure Disposition: Home Clinical Impression: Esophagitis, Non-cardiac chest pain Condition: Stable Critical Care Time: No Referrals: DELORES TRONCOSO [Primary Care Provider, EMERGENCY MEDICINE] - Follow up/PCP as directed Additional Instructions: Avoid fatty greasy spicy foods. Take your medications as prescribed. Call Dr. Tapia and your audit partner today, 11/14/2024, to make arrangements for follow- up appointment to be seen in the next 3 to 5 days.
[2024-11-14 07:14] LABS: BASOPHIL % 0.5 % (0.1-1.2); Basophil (Absolute #) 0.08 x10^3/uL (0.01-0.08); Eosinophil (Absolute #) 0.56 x10^3/uL (0.04-0.36); Hematocrit 42.6 % (34.1-44.9); Hemoglobin 13.4 g/dL (11.2-15.7); IMMATURE GRAN # 0.06 x10^3u/L (0.001-0.031); IMMATURE GRAN % 0.4 % (0.001-0.429); Lymphocyte (Absolute #) 2.01 x10^3/uL (1.18-3.74); Mean Corpuscular Hemoglobin 27.3 pg (25.6-32.2); Mean Corpuscular Hgb Concent. 31.5 g/dL (32.2-35.5); Monocyte (Absolute #) 1.16 x10^3/uL (0.24-0.86); NUCLEATED RBC # 0.00 x10^3u/L (0.00-0.012); NUCLEATED RBC % 0.0 % (0.00-0.2); Platelet Count 319 x10^3/uL (182-369); Red Blood Count 4.90 x10^6/uL (3.93-5.22); White Blood Count 14.6 x10^3/uL (3.98-10.04)
[2024-11-14 07:22] LABS: INR 0.89 (0.8-3.0); PROTIME 9.8 SECONDS (9.4-12.5)
[2024-11-14 07:31] LABS: Calcium 9.8 mg/dL (8.4-10.2); Carbon Dioxide 27.0 mmol/L (22-30); Creatinine 1 0.85 mg/dL (0.52-1.04); EST GLOMERULAR FILTRATION RATE 75.5 ML/MIN; Glucose 97.0 mg/dL (74-106); NT PRO BNPII 309.0 pg/mL (<300); Potassium 4.1 mmol/L (3.5-5.1); SGOT/AST 30.0 U/L (14-36); SGPT/ALT 28.0 U/L (0-35); Total Protein 7.3 g/dL (6.3-8.2)
[2024-11-14] MEDS ORDERED: MORPHINE SULFATE 2 MG INJ ONE (07:41)
[2024-11-14] MEDS ORDERED: Zofran 4 MG/2 ML VIAL ONE (07:41)
[2024-11-14] MEDS: Zofran 4 MG/2 ML VIAL IV ONE (07:45)
[2024-11-14] MEDS: MORPHINE SULFATE 2 MG INJ IV ONE (07:45)
--- NOTE | 2024-11-14 08:53 | XRAY ---
Indication: Chest pain. Multiple contiguous axial images obtained through the chest without contrast. Comparison: February 16, 2014 Lungs demonstrates minimal bilateral dependent atelectasis. No suspicious pulmonary mass/nodule, infiltrate, or effusion. Heart not enlarged with interval CABG surgery. Aorta is normal in course and caliber. No pathologic mediastinal lymphadenopathy. Again small hiatal hernia with mild distal esophageal circumferential wall thickening, possible reflux esophagitis. Bony thorax intact with osteopenia and minimal/mild degenerative changes throughout spine. Limited upper abdomen again demonstrates cholecystectomy. Impression: 1. Again small hiatal hernia with distal esophageal circumferential wall thickening. Rule out reflux esophagitis. 2. Incidental CABG surgery, osteopenia, and multilevel degenerative spondylosis. 3. Remaining CT chest without contrast exam is negative.
--- NOTE | 2024-11-14 08:55 | XRAY ---
Indication: Pain. Comparison: May 14, 2024 3 view right ankle unchanged again demonstrating osteopenia, talotibial/talonavicular degenerative changes, medial malleolus tip well-circumscribed heterotopic ossification, heel spurs, and mild medial soft tissue swelling. No new/acute abnormalities.
--- NOTE | 2024-11-14 08:57 | XRAY ---
Indication: Pain. Comparison: May 14, 2024 3 nonweightbearing views right foot unchanged again demonstrating osteopenia, talotibial/talonavicular degenerative changes, mild 1st MTP degenerative changes, heel spurs, and mild pes planus. No new/acute abnormalities.
[2024-11-14 09:32] VITALS: PULSE 80
[2024-11-14 09:35] VITALS: O2SAT 97
[2024-11-14] MEDS ORDERED: XYLOCAINE VISCOUS 2% 15 ML CUP ONE (10:26)
[2024-11-14] MEDS ORDERED: MAALOX ES 30 ML UNIT DOSE ONE (10:26)
[2024-11-14] MEDS: GI COCKTAIL 45 ML (Maalox/Lidocaine) PO ONE (10:30)
[2024-11-14 10:50] VITALS: BP 125/81; RESP 15
== END 2024-11-14 10:40 | disposition home or self-care (01) ==
LOC: ED 06:33
DX: K20.90 Esophagitis, unspecified without bleeding (principal); R07.89 Other chest pain; E11.9 Type 2 diabetes mellitus without complications; I10 Essential (primary) hypertension; Z79.02 Long term (current) use of antithrombotics/antiplatelets; Z79.4 Long term (current) use of insulin; Z79.84 Long term (current) use of oral hypoglycemic drugs; Z79.899 Other long term (current) drug therapy; Z59.819 Housing instability, housed unspecified

== ENCOUNTER 2024-11-22 21:01 | Emergency (ER) | payer MEDICARE, OTHER ==
[2024-11-22 21:22] VITALS: TEMP 97.9
[2024-11-22] MEDS ORDERED: Zofran 4 MG/2 ML VIAL ONE (21:28)
[2024-11-22 21:35] LABS: BASOPHIL % 0.5 % (0.1-1.2); Basophil (Absolute #) 0.07 x10^3/uL (0.01-0.08); Eosinophil (Absolute #) 0.19 x10^3/uL (0.04-0.36); Hematocrit 42.0 % (34.1-44.9); Hemoglobin 13.2 g/dL (11.2-15.7); IMMATURE GRAN # 0.06 x10^3u/L (0.001-0.031); IMMATURE GRAN % 0.4 % (0.001-0.429); Lymphocyte (Absolute #) 1.41 x10^3/uL (1.18-3.74); Mean Corpuscular Hemoglobin 27.4 pg (25.6-32.2); Mean Corpuscular Hgb Concent. 31.4 g/dL (32.2-35.5); Monocyte (Absolute #) 0.90 x10^3/uL (0.24-0.86); NUCLEATED RBC # 0.00 x10^3u/L (0.00-0.012); NUCLEATED RBC % 0.0 % (0.00-0.2); Platelet Count 402 x10^3/uL (182-369); Red Blood Count 4.82 x10^6/uL (3.93-5.22); White Blood Count 15.5 x10^3/uL (3.98-10.04)
[2024-11-22] MEDS: Zofran 4 MG/2 ML VIAL IV ONE (21:36)
[2024-11-22 21:47] LABS: Calcium 9.8 mg/dL (8.4-10.2); Carbon Dioxide 24.0 mmol/L (22-30); Creatinine 1 0.96 mg/dL (0.52-1.04); EST GLOMERULAR FILTRATION RATE 65.3 ML/MIN; Glucose 233.0 mg/dL (74-106); Potassium 4.0 mmol/L (3.5-5.1); SGOT/AST 28.0 U/L (14-36); SGPT/ALT 27.0 U/L (0-35); Total Protein 8.2 g/dL (6.3-8.2)
[2024-11-22 22:33] VITALS: O2SAT 95
[2024-11-22] MEDS ORDERED: Compazine 10 MG/2 ML ONE (22:50)
[2024-11-22] MEDS: Compazine 10 MG/2 ML IV ONE (22:51)
--- NOTE | 2024-11-22 22:51 | XRAY ---
CLINICAL HISTORY: abd pain COMPARISON: November 12 TECHNIQUE: Contiguous axial images were obtained from the level of the diaphragm to the pubic symphysis with intravenous contrast. Coronal and sagittal reconstructions were likewise performed and indicated to increase the sensitivity for detecting clinically relevant pathology. If IV contrast material had not been administered, the likelihood of detecting abnormalities relevant to the patient's condition would have been substantially decreased. CT scan was performed according to ALARA (as low as reasonable achievable). FINDINGS: The visualized lung bases are clear. The liver is normal in size and attenuation. No focal liver lesions are seen. There is no intra or extrahepatic biliary ductal dilatation. Hepatic vasculature is patent. The gallbladder is not seen- likely post op, advised clinical correlation. The spleen, pancreas, and adrenal glands are unremarkable. The kidneys are normal in size and attenuation. There is no hydronephrosis or perinephric fat stranding. No renal calculi or renal masses are identified. The ureters are normal in caliber and no ureteral calculi are seen. The bladder is normal in contour. Pelvic viscera are unremarkable. Stomach is grossly distended filled with food particles.. No focal or diffuse bowel wall thickening or evidence of bowel obstruction is identified. No evidence of inflamed appendix. Abdominal and pelvic vasculature is patent. No adenopathy or fluid collections are seen. No aggressive appearing osseous lesions are identified. Spondylolysis noted at L5 pars interarticularis of L4 vertebra with grade II anterolisthesis of L4 over L5 vertebra. Diffuse atherosclerotic calcification is noted involving aorta iliac arteries. IMPRESSION: 1. No acute intra-abdominal abnormality seen 2. Spondylolysis noted at L5 pars interarticularis of L4 vertebra with grade II anterolisthesis of L4 over L5 vertebra.n-stable. 3. No other new interval abnormality since prior study. Electronically Signed by: Samson Velasco MD. (11/22/2024 22:48:08 EDT)
--- NOTE | 2024-11-22 23:07 | ERPHSYRPT ---
- History of Present Illness Historian: patient Exam Limitations: no limitations Patient Subjective Stated Complaint: pt reports abdominal bloating/discomfort, fatigue and headache for the last 3 days. pt reports she took a laxative approx 1 hour DISEASE AND INSECT CONTROL BOSS and has had several BM's since then. pt reports she had open heart in August and was seen here recently and had an elevated WBC, she is worried she may be septic. she states she just overall feels "lousy" Triage Nursing Assessment: pt is aox3, pupils perrl, afebrile, resps easy and non labored, cap refill < 3 seconds, radial pulses strong and equal, abd is distended bowel sounds are present and normoactive x 4, pt skin moist, warm, intact. Physician History: Patient's had some bloating in her abdomen. She has some tenderness in the left upper quadrant. She is worried about sepsis for some reason. She does not have any fever or chills or any real infectious symptoms going on. She is mention sepsis a couple times.I know that last time she was here was about a week ago. That chart was reviewed. She had a white count around 15. She got a CT of her chest because she was post CABG. It was normal. She does not have any signs or symptoms of infectious process going on. She does not have any chest pain anymore. It is in the left upper quadrant mainly. Nothing seems to make the symptoms better or worse. She said it was bloated and distended I am not noticing that so much. Is definitely not firm.She has no respiratory symptoms and no dysuria or flank pain.Her main problem is abdominal bloating. Severity of Pain-Max: none Severity of Pain-Current: none Allergies/Adverse Reactions: Penicillins Allergy (Mild, Verified 11/22/24 21:23) Sulfa (Sulfonamide Antibiotics) [Sulfa(Sulfonamide Antibiotics)] Allergy (Mild, Verified 11/22/24 21:23) Home Medications: Ascorbic Acid [Vitamin C] 1,000 mg PO DAILY 08/14/24 [History] Biotin [Biotin-D] 1 tab PO DAILY 08/14/24 [History] Gabapentin [Neurontin ] 300 mg PO TID 08/14/24 [History] Insulin Degludec [Tresiba Flextouch U-100] 1 unit SQ CLARIFY 08/14/24 [History] Insulin Glulisine [Apidra Solostar] 1 unit SQ CLARIFY 08/14/24 [History] Semaglutide [Rybelsus] 1 tab PO DAILY 08/14/24 [History] Aspirin 81 gm Chew [Baby Aspirin 81 mg Chew] 81 mg PO QAM 11/14/24 [History] Atorvastatin Calcium 40 mg PO HS 11/14/24 [History] Clopidogrel Bisulfate [Clopidogrel] 75 mg PO QAM 11/14/24 [History] Cyanocobalamin (Vitamin B-12) [Vitamin B-12] 1,000 mcg PO QAM 11/14/24 [History] Empagliflozin [Jardiance] 10 mg PO QAM 11/14/24 [History] Eszopiclone 3 mg PO HS 11/14/24 [History] Ezetimibe 10 mg [Zetia 10 MG] 10 mg PO QAM 11/14/24 [History] Nitroglycerin 0.4 mg Tablet [Nitrostat 0.4 MG Tablet] 0.4 mg SL Q5MIN PRN MR X 3 PRN 11/14/24 [History] PANTOPRAZOLE 40 mg Tablet [Protonix 40MG Tablet] 40 mg PO BID 11/22/24 [History] Hx Tetanus, Diphtheria Vaccination/Date Given: Yes Hx Influenza Vaccination/Date Given: No Hx Pneumococcal Vaccination/Date Given: No Immunizations Up to Date: Yes Travel Risk - International Travel Have you traveled outside of the country in past 3 weeks: No - Emerging Infectious Disease Are you exhibiting symptoms associated with any current EIDs: No - Review of Systems Constitutional: No Symptoms Eyes: No Symptoms Respiratory: No Symptoms Cardiac: No Symptoms Genitourinary Symptoms: No Symptoms Musculoskeletal: No Symptoms Skin: No Symptoms Neurological: No Symptoms Psychological: No Symptoms - Past Medical History Pertinent Past Medical History: Yes Neurological History: No Pertinent History ENT History: No Pertinent History Cardiac History: Hypertension, Other Respiratory History: No Pertinent History Endocrine Medical History: Diabetes Type II Musculoskeletal History: Arthritis GI Medical History: Irritable Bowel History: No Pertinent History Psycho-Social History: No Pertinent History Female Reproductive Disorders: No Pertinent History Other Medical History: kidney stones - Past Surgical History Past Surgical History: Yes Neuro Surgical History: No Pertinent History Cardiac: CABG, Cardiac Catheterization Respiratory: No Pertinent History Gastrointestinal: Cholecystectomy Genitourinary: No Pertinent History Musculoskeletal: Joint Replacement, Orthopedic Surgery Female Surgical History: Hysterectomy Other Surgical History: christina knee replacement, - Social History Smoking Status: Never smoker Exposure to second hand smoke: No Drug Use: none - Social Determinants of Health Will the patient participate in the screening: Unable to obtain - Nursing Vital Signs Nursing Vital Signs: Initial Vital Signs Blood Pressure 166/99 11/22/24 21:14 O2 Sat by Pulse Oximetry 98 11/22/24 21:14 Pain Scale Pain Intensity 0 - Physical Exam General Appearance: no apparent distress Eye Exam: PERRL/EOMI Ears, Nose, Throat Exam: normal ENT inspection Respiratory Exam: normal breath sounds, No chest tenderness Cardiovascular Exam: regular rate/rhythm, normal heart sounds Gastrointestinal/Abdomen Exam: soft, normal bowel sounds, tenderness (Mild in the left upper quadrant) SpO2: 95 - Course Nursing assessment & vital signs reviewed: Yes Ordered Tests: Active Orders 24 hr Category Date Time Status IV Insertion STAT Care 11/22/24 21:27 Active ABDOMEN AND PELVIS W CONTRAST [CT] Stat Exams 11/22/24 22:01 Completed CBC W DIFF Stat Lab 11/22/24 21:30 Completed CMP Stat Lab 11/22/24 21:30 Completed LIPASE Stat Lab 11/22/24 21:30 Completed UA W/RFX UR CULTURE Stat Lab 11/22/24 23:13 Completed Medication Summary Discontinued Medications Generic Name Dose Route Start Last Admin Trade Name Freq PRN Reason Stop Dose Admin Sodium Chloride 1,000 mls @ 999 mls/hr 11/22/24 21:26 11/22/24 22:37 Sodium Chloride 0.9% 1000 Ml IV 11/22/24 22:26 Infused .Q1H1M STA Infusion Sodium Chloride Confirm 11/22/24 21:28 Sodium Chloride 0.9% 1000 Ml Administered 11/22/24 21:29 Dose 1,000 mls @ ud .ROUTE .STK-MED ONE Ondansetron HCl 4 mg 11/22/24 21:26 11/22/24 21:36 Ondansetron Hcl 4 Mg/2 Ml Vial IV 11/22/24 21:27 4 mg STAT ONE Administration Ondansetron HCl Confirm 11/22/24 21:28 Ondansetron Hcl 4 Mg/2 Ml Vial Administered 11/22/24 21:29 Dose 4 mg .ROUTE .STK-[facility] ONE Prochlorperazine Edisylate 10 mg 11/22/24 22:44 11/22/24 22:51 Prochlorperazine Edisylate 10 Mg/2 Ml Vial IV 11/22/24 22:45 10 mg STAT ONE Administration Prochlorperazine Edisylate Confirm 11/22/24 22:50 Prochlorperazine Edisylate 10 Mg/2 Ml Vial Administered 11/22/24 22:51 Dose 10 mg .ROUTE .[facility] Lab/Rad Data: Laboratory Result Diagrams 11/22/24 21:30 11/22/24 21:30 Laboratory Results 11/22/24 11/22/24 11/22/24 Range/Units 23:13 21:30 21:30 WBC 15.5 H (3.98-10.04) x10^3/uL RBC 4.82 (3.93-5.22) x10^6/uL Hgb 13.2 (11.2-15.7) g/dL Hct 42.0 (34.1-44.9) % MCV 87.1 (79.4-94.8) fL MCH 27.4 (25.6-32.2) pg MCHC 31.4 L (32.2-35.5) g/dL RDW 13.9 (11.7-14.4) % Plt Count 402 H (182-369) x10^3/uL MPV 10.3 (9.4-12.3) fL Gran % 83.0 H (34.0-71.1) % Immature Gran % (Auto) 0.4 (0.001-0.429) % Nucleat RBC Rel Count 0.0 (0.00-0.2) % Eos # (Auto) 0.19 (0.04-0.36) x10^3/uL Immature Gran # (Auto) 0.06 H (0.001-0.031) x10^3u/L Absolute Lymphs (auto) 1.41 (1.18-3.74) x10^3/uL Absolute Monos (auto) 0.90 H (0.24-0.86) x10^3/uL Absolute Nucleated RBC 0.00 (0.00-0.012) x10^3u/L Lymphocytes % 9.1 L (19.3-51.7) % Monocytes % 5.8 (4.7-12.5) % Eosinophils % 1.2 (0.7-5.8) % Basophils % 0.5 (0.1-1.2) % Absolute Granulocytes 12.89 H (1.56-6.13) x10^3/uL Basophils # 0.07 (0.01-0.08) x10^3/uL Sodium 141 (135-145) mmol/L Potassium 4.0 (3.5-5.1) mmol/L Chloride 105 (98-107) mmol/L Carbon Dioxide 24 (22-30) mmol/L Anion Gap 16.0 H (5-15) MEQ/L BUN 23 H (7-17) mg/dL Creatinine 0.96 (0.52-1.04) mg/dL Estimated GFR 65.3 ML/MIN Glucose 233 H (74-106) mg/dL Calcium 9.8 (8.4-10.2) mg/dL Total Bilirubin 0.30 (0.2-1.3) mg/dL AST 28 (14-36) U/L ALT 27 (0-35) U/L Alkaline Phosphatase 118 (38-126) U/L Serum Total Protein 8.2 (6.3-8.2) g/dL Albumin 4.4 (3.5-5.0) g/dL Lipase 121 (23-300) U/L Urine Color Yellow (Yellow) Urine Appearance Clear (Clear) Urine pH 5.5 (4.6-8.0) Ur Specific [place] >=1.030 A (1.005-1.030) Urine Protein Negative (Negative) Urine Glucose (UA) >=1000 A (Negative) mg/dL Urine Ketones Negative (Negative) Urine Blood Negative (Negative) Urine Nitrite Negative (Negative) Urine Bilirubin Negative (Negative) Urine Urobilinogen 0.2 (0.2) mg/dL Ur Leukocyte Esterase Small A (Negative) U Hyaline Cast (Auto) NONE SEEN (0-2) /LPF Urine Microscopic RBC 0-2 (0-5) /HPF Urine Microscopic WBC 3-5 (0-5) /HPF Ur Epithelial Cells None Seen (None Seen) /HPF Urine Bacteria None Seen (None Seen) /HPF Urine Culture Reflexed NO (NO) - Progress Progress: unchanged Progress Note: Patient was stable throughout stay. Her lab work looked good. Her white count was still a bit elevated around 15. Her chemistry panel was within normal limits. CT of the abdomen pelvis showed no acute findings. Her vital signs were stable throughout stay.UA was done it was negative. I think the patient stable to go home. She just seems to have some abdominal discomfort 11/22/24 23:06 11/22/24 23:36 - Departure Departure Disposition: Home Clinical Impression: Abdominal pain Condition: Stable Critical Care Time: No Referrals: DELORES TRONCOSO [Primary Care Provider, EMERGENCY MEDICINE] - Follow up/PCP as directed Instructions: Abdominal pain
[2024-11-22 23:27] LABS: Glucose, Urine >=1000 mg/dL (Negative); Protein,Urine Dip Negative (Negative); RBC 0-2 /HPF (0-5)
[2024-11-23 00:18] VITALS: BP 129/78; PULSE 79; RESP 18
== END 2024-11-23 00:16 | disposition home or self-care (01) ==
LOC: ED 21:01
DX: R10.12 Left upper quadrant pain (principal); I10 Essential (primary) hypertension; E11.9 Type 2 diabetes mellitus without complications; Z79.02 Long term (current) use of antithrombotics/antiplatelets; Z79.84 Long term (current) use of oral hypoglycemic drugs; Z79.4 Long term (current) use of insulin; Z79.899 Other long term (current) drug therapy

== ENCOUNTER 2024-12-31 09:59 | Day surgery (SDC) | payer MEDICARE, OTHER ==
[2024-12-31 10:30] VITALS: RESP 18
[2024-12-31] MEDS ORDERED: Xylocaine-Mpf 2% 5 Ml Vial ONE (12:32)
[2024-12-31] MEDS ORDERED: SUBLIMAZE 100 MCG/2 ML ONE (12:32)
[2024-12-31] MEDS ORDERED: propofoL IV ONE ×3 (12:32→13:18)
[2024-12-31] MEDS ORDERED: Versed 2 MG/2 ML Injection ONE (12:33)
[2024-12-31 14:25] VITALS: PULSE 50; O2SAT 100
[2024-12-31 14:28] VITALS: BP 125/75; TEMP 97
--- NOTE | 2025-01-07 09:35 | OP ---
SURGERY DATE/TIME: 12/31/2024 [id number] PREOPERATIVE DIAGNOSES: Dysphagia, hoarseness, reflux, rectal bleeding. POSTOPERATIVE DIAGNOSES: Gastritis, raised antral ulceration, small hiatal hernia with reflux esophagitis suspicious for Richmond's, colon polyps, external hemorrhoid disease, and anterior anal tag. PROCEDURE: Esophagogastroduodenoscopy with biopsies and colonoscopy with cold snare polypectomies. SURGEON: Angelika Tatum MD. SPECIMENS: Distal esophagus, gastric antrum ulcerations, rectosigmoid polyp, and splenic flexure polyp. INDICATIONS: This is a patient who presents for EGD and colonoscopy. She has had multiple symptoms. For the upper scope, she has been having some dysphagia, reflux symptoms, as well as hoarseness. For the lower, she is having rectal bleeding. She would like to have both an EGD and colonoscopy. She has done the prep. She and I have discussed the procedures today in detail. She understands the risks, benefits, and alternatives of the procedure. We have, together, completed her H and P and verified this. I have also obtained consent. All her questions have been answered to her satisfaction and she would like to proceed. Consent has been signed. DESCRIPTION OF PROCEDURE AND FINDINGS: She was brought back to the endoscopy suite. She was laid in left lateral decubitus position and a complete time-out was performed. The scope was gently inserted into the mouth, oropharynx, down to into the esophagus, stomach, and then beginning of the duodenum to approximately the second portion. We then carefully withdrew the scope and took a nice look at all of the structures. The patient does not have any significant findings in her duodenum. Overall, this is healthy appearing. In her stomach, she does have some gastritis with patchy inflammation and she also has most prominent inflammation in the antral region. She has raised areas in the antrum with specifically an area that is raised with a central crater that appears to be an ulcer. I took biopsies of this with cold forceps and this site was hemostatic. On a retroflexed view, she has gastritis, again patchy throughout her stomach with erythema. There are no masses in her stomach. There is nothing concerning for malignancy. I do see a small hiatal hernia on retroflexed view. We then unretroflexed again, ensured excellent hemostasis. There are no other concerning findings and so the scope was then withdrawn back to the distal esophagus. The GE junction is at approximately 36 cm. Again, she does have a small hiatal hernia. She also has esophagitis here. The acute inflammation overall looks mild; however, she does have some beginnings of squamous islands and tongues. 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 I took biopsies for pathology with a cold forceps and sent these to the lab for further review. These sites were all hemostatic. We then again continued to carefully withdraw the scope, taking a nice view. She has no masses or strictures in her esophagus. At the area in her cervical esophagus where she is also having some dysphagia this looks excellent. My scope easily goes down from her mouth, oropharynx, into her esophagus and on withdrawal we have a nice distension of the esophagus here. My suspicion is that she is having reflux and this is causing spasms in this area. Again, no masses or strictures. I then fully removed the scope and she was repositioned for a colonoscopy. She tolerated the EGD well. We then did a rectal inspection and then a digital rectal exam, and then inserted the scope and gently advanced this to the level of the cecum. We did have some stool throughout her colon and she did have some mild tortuosity, so we had to use gentle abdominal pressure to allow the scope to be navigated gently to the cecum. She tolerated this well and we were able to identify the ileocecal valve, the appendiceal orifice, and then I washed out the colon as best as possible and then carefully removed the scope. Overall, her prep was fair using an Aronchick score, but still satisfactory. As we withdrew the scope, we carefully looked throughout the colon. There were no masses. She did have a couple of very miniscule telangiectasias noted in her colon that were not actively bleeding and tiny, less than 5 mm. She also had 2 polyps identified. One was in the rectosigmoid. This was about 4 to 5 mm in size and semi-sessile. She also had a splenic flexure polyp noted which was about 4 mm, also semi-sessile. These were both taken with a cold snare in entirety. They were both hemostatic. They were both retrieved and sent to pathology. We then further withdrew the scope. There were no other additional findings outside of what has been mentioned except for a small enlarged external hemorrhoid and a small posterior anal tag. Both are minor and not bleeding at this time. However, I do think the hemorrhoid could have bled previously. The skin overlying this is very thin and so this could be a culprit for the rectal bleeding. It is enlarged but it is not bleeding acutely now. It is also not thrombosed acutely now. Patient tolerated this part of the procedure well. The scope was then fully withdrawn. She will following up with me as an outpatient to discuss her findings. I have also recommended a bowel regimen for her and we will further discuss her hemorrhoids. If this keeps bleeding, I would recommend surgical treatment. However, if we can manage this conservatively that would be the best and then she would not need surgery for this. Due to satisfactory but fair prep, polyps on this exam, I would recommend tentatively a 3-year colonoscopy interval.
== END 2024-12-31 15:20 | disposition home or self-care (01) ==
LOC: SDC 09:59
PROVIDERS: ATTEND Surgery
DX: K29.70 Gastritis, unspecified, without bleeding (principal); R13.10 Dysphagia, unspecified; R49.0 Dysphonia; K21.9 Gastro-esophageal reflux disease without esophagitis; K62.5 Hemorrhage of anus and rectum; K25.9 Gastric ulcer, unspecified as acute or chronic, without hemorrhage or perforation; K44.9 Diaphragmatic hernia without obstruction or gangrene; K64.4 Residual hemorrhoidal skin tags; K20.90 Esophagitis, unspecified without bleeding; E11.9 Type 2 diabetes mellitus without complications; D12.7 Benign neoplasm of rectosigmoid junction